=== PATIENT | female | born 1995 | race Caucasian/White ===

== ENCOUNTER 2019-01-27 15:51 | Emergency (ER) | payer OTHER, BC ==
[~2019-01-27] VITALS: Ht 162.6 cm; Wt 59.0 kg
[~2019-01-27 15:51] MED LIST: FLOMAX0.4 MG PO; PERCOCET 5-3251 EACH PO
[2019-01-27 16:59] LABS: URINE COLOR YELLOW
[2019-01-27 17:01] LABS: URINE BILIRUBIN NEGATIVE (Negative); URINE BLOOD NEGATIVE (Negative); URINE CLARITY CLEAR; URINE GLUCOSE-RANDOM NEGATIVE (Negative); URINE KETONES NEGATIVE (Negative); URINE LEUKOCYTES-REFLEX TRACE (Negative); URINE NITRITE-REFLEX NEGATIVE (Negative); URINE PROTEIN NEGATIVE (Negative); URINE SPECIFIC GRAVITY <= 1.005 (1.005-1.030); URINE UROBILINOGEN 0.2 E.U./dl (0.2-1.0)
[2019-01-27 17:08] LABS: SQUAMOUS >10 Many /LPF (0-3)
[2019-01-27 17:09] LABS: BACTERIA-REFLEX None Seen /HPF (None Seen); CASTS None Seen /LPF (None Seen); CRYSTALS None Seen /LPF (None Seen); URINE RBC None Seen /HPF (0-2); URINE WBC-REFLEX None Seen /HPF (0-5)
[2019-01-27 17:15] LABS: ABSOLUTE EOSINOPHILS 0.8 thou/uL (0.0-0.7); ABSOLUTE LYMPHOCYTES 2.7 thou/uL (0.8-5.3); ABSOLUTE MONOCYTES 0.6 thou/uL (0.0-1.2); ABSOLUTE NEUTROPHILS 3.8 thou/uL (1.6-8.1); BASOPHILS 0.6 %; EOSINOPHILS 10.5 %; HEMATOCRIT 40.8 % (37.0-47.0); HEMOGLOBIN 13.8 gm/dL (12.0-15.0); LYMPHOCYTES 33.4 %; MCH 31.1 pg (26.0-34.0); MCHC 33.8 g/dL (28.0-37.0); MCV 92.1 fL (80.0-100.0); MONOCYTES 7.3 %; MPV 10.2 fl. (7.2-11.1); NUCLEATED RBCS 0 /100WBC; PLATELET COUNT* 163 thou/uL (150-400); POLYS 48.2 %; RBC 4.43 mil/uL (4.20-5.00); RDW-CV 12.9 % (10.5-14.5)
[2019-01-27 17:21] LABS: CALCIUM 8.7 mg/dL (8.5-10.1); CREATININE 0.6 mg/dL (0.6-1.3); POTASSIUM 3.9 mmol/L (3.5-5.1)
[2019-01-27 17:25] LABS: ALBUMIN 3.9 g/dL (3.4-5.0); TOTAL BILIRUBIN 0.2 mg/dL (<0.1-1.0); TOTAL PROTEIN 7.3 g/dL (6.4-8.2)
[2019-01-27] MEDS ORDERED: NAPROSYN500 MG PO (18:42)
[2019-01-27] MEDS ORDERED: ONDANSETRON HCL4 M2 PO (18:42)
[2019-01-27 18:55] VITALS: BP 105/63
== END 2019-01-27 18:57 | disposition home or self-care (01) ==
LOC: M.ERS 15:51
PROVIDERS: Nurse Practitioner Family
DX: N20.0 Calculus of kidney (principal); Z91.018 Allergy to other foods